=== PATIENT | female | born 1965 | race Caucasian/White ===

== ENCOUNTER 2016-04-02 10:16 | Emergency (ER) | payer SELFPAY ==
[~2016-04-02] VITALS: Ht 157.5 cm; Wt 51.5 kg
[~2016-04-02 10:16] MED LIST: ALBU8I INH; AZIT250T74 PO; BENZ100 PO; PRED20 PO
[2016-04-02 10:21] VITALS: BP 83/53; PULSE 70; RESP 16; TEMP 97.7; O2SAT 100
--- NOTE | 2016-04-02 11:52 | RADHPO ---
EXAM DATE/TIME: 04/02/2016 10:39 [facility] COMPARISON: No previous studies available for comparison. INDICATIONS : Lefth hand/5th digit pain after jamming it against a wall & heavy object. MEDICAL HISTORY : Gastroesophageal reflux disease. Pancreatitis. Asthma. CVA. SURGICAL HISTORY : section. ENCOUNTER: Initial ACUITY: 2 days PAIN SCORE: 6/10 LOCATION: Left hand FINDINGS: Three view examination of the left hand demonstrates no soft tissue swelling, dislocation, or fractur e. The carpal bones appear intact. The interphalangeal and metacarpophalangeal joints are intact. Bony mineralization is normal. Incidental note is that of an ulnar minus variant of the wrist CONCLUSION: 1. Ulnar minus variant of the wrist. 2. Otherwise negative with no acute osseous injury. Joce Sandoval MD on April 02, 2016 at 11:49 Board Certified Radiologist. This report was verified electronically.
[2016-04-02] MEDS ORDERED: MOTR200T4 PO (12:23)
--- NOTE | 2016-04-02 12:23 | PD ---
HPI Chief Complaint: Injury Time Seen by Provider: 10:35 Travel History International Travel<30 days: No Contact w/Intl Traveler<30days: No Traveled to known affect area: No History of Present Illness HPI 50-year-old female with previous history of anorexia nervosa, presents to the ER today because she states that she had accidentally hit her left hand while trying to move some trays at work, is having pain in the lateral left hand area. She denies any other issues or injuries. Pain is mostly at the fifth metacarpal area, hurts with touch, and movement, and is currently a 9 out of 10. Modifying Factors: None Associated Signs & Symptoms: Left hand pain, injury Risk Factors: None PFSH Past Medical History Asthma: Yes (EARLY TWENTIES AND A CHILD) Bipolar Disorder: Yes Cerebrovascular Accident: Yes (TIA) Diminished Hearing: No GERD: Yes Hepatitis: Yes (HEP A) Psychiatric: Yes (BIPOLAR & ANOREXIA) Immunizations Current: Yes Pancreatitis: Yes Tetanus Vaccination: Unknown PNEUMOCCOCAL Vaccine (Year): 2 ?: Not Tubal Ligation: Yes Past Surgical History Abdominal Surgery: Yes () Section: Yes Other Surgery: Yes Social History Alcohol Use: Yes (occ.) Tobacco Use: Yes Substance Use: Yes (marijuana) Allergies-Medications (Allergen,Severity, Reaction): Coded Allergies: No Known Allergies (Verified , 04/02/16) Reported Meds & Prescriptions Reported Meds & Active Scripts Active No Active Prescriptions or Reported Medications Review of Systems Except as stated in HPI: all other systems reviewed are Neg Physical Exam Narrative GENERAL: Well-nourished, well-developed middle age female patient in no acute distress. SKIN: Warm and dry. HEAD: Normocephalic. EYES: No scleral icterus. No injection or drainage. NECK: Supple, trachea midline. CARDIOVASCULAR: Regular rate and rhythm without murmurs, gallops, or rubs. RESPIRATORY: Breath sounds equal bilaterally. No accessory muscle use. GASTROINTESTINAL: Abdomen soft, non-tender, nondistended. MUSCULOSKELETAL: No cyanosis, or edema. BACK: Nontender without obvious deformity. No CVA tenderness. Left hand: There is mild tenderness to palpation of the fifth metacarpal area. Neurovascularly intact. No obvious deformities identified. No significant ecchymosis. Data Data Last Documented VS Vital Signs Date Time Temp Pulse Resp B/P Pulse Ox O2 Delivery O2 Flow Rate FiO2 04/02/16 10:21 97.7 70 16 83/53 100 Orders Hand, Complete ([id number]) (04/02/16 10:35) MDM Medical Decision Making Medical Screen Exam Complete: Yes Emergency Medical Condition: Yes Medical Record Reviewed: Yes Interpretation(s) Last 24 hours Impressions Hand X-Ray 04/02/16 1035 Signed Impressions: Service Date/Time: Saturday, April 02, 2016 10:39 - CONCLUSION: 1. Ulnar minus variant of the wrist. 2. Otherwise negative with no acute osseous injury. Joce Sandoval MD Differential Diagnosis Contusion versus fractures versus dislocation Narrative Course X-ray did not reveal any signs of acute bony injuries. At this point, I suspect that this is a contusion. My plan would be to release her with symptomatic relief or pain and follow-up as necessary with primary care doctor. Return for any worsening in symptoms as necessary. The plan has been discussed with the patient and she states understanding. In addition, patient's blood pressure is fairly low ER. However, she is not reporting any dizziness, or other symptoms related to it. Her blood pressure is always low on previous visits as well. I do not suspect acute issues here. Diagnosis Primary Impression: CONTUSION OF LEFT HAND, INITIAL ENCOUNTER Med/Other Pt SpecificInfo: Prescription(s) given Scripts Ibuprofen (Motrin Ib)200 Mg [id number] Mg PO Q6H PRN (PAIN SCALE 1 TO 10) #21 TAB Ref 0 Prov:Destini Mcfarland MD 04/02/16 Disposition: 01 DISCHARGE HOME Condition: Stable Destini Mcfarland MD Apr 02, 2016 12:23
== END 2016-04-02 12:39 | disposition home or self-care (01) ==
LOC: PHED 10:16
DX: S60.222A Contusion of left hand, initial encounter (principal); J45.909 Unspecified asthma, uncomplicated; Z86.73 Personal history of transient ischemic attack (TIA), and cerebral infarction without residual deficits; K21.9 Gastro-esophageal reflux disease without esophagitis; Z72.0 Tobacco use; X58.XXXA Exposure to other specified factors, initial encounter; Y99.0 Civilian activity done for income or pay
CPT/HCPCS: 73130; 99283

== ENCOUNTER 2016-12-17 10:39 | Emergency (ER) | payer SELFPAY ==
[~2016-12-17] VITALS: Ht 157.5 cm; Wt 68.0 kg
[~2016-12-17 10:39] MED LIST changes: -ALBU8I INH; -AZIT250T74 PO; -BENZ100 PO; +MOTR200T4 PO; -PRED20 PO
[2016-12-17 10:41] VITALS: BP 127/73; PULSE 70; RESP 14; TEMP 98.2; O2SAT 100
[2016-12-17 11:00] VITALS: BP 118/66; PULSE 69; RESP 16; O2SAT 100
[2016-12-17] MEDS ORDERED: RESP: ALBUTEROL 2.5 MG/IPRATROPIUM 0.5 MG NEB (SCH) INH ONE ×2 (11:30)
[2016-12-17] MEDS ORDERED: KETOROLAC TROMETHAMINE 60 MG/2 ML (IM) VIAL IM ONE ×2 (11:30)
--- NOTE | 2016-12-17 11:35 | PD ---
HPI Chief Complaint: Musculoskeletal Complaint Time Seen by Provider: 11:17 Travel History International Travel<30 days: No Contact w/Intl Traveler<30days: No Traveled to known affect area: No History of Present Illness HPI Patient complaining of right-sided chest pain ongoing for 2 weeks. Patient is an achy/pressure-like in nature with associated cough is occasionally productive and shortness of breath. Denies any fevers, nausea, vomiting, abdominal pain, back pain, headache, numbness or tingling, loss change in bowel or bladder, or weakness. Pain is worse with deep inspiration and certain movement. Denies anything making it better. Denies doing anything for this prior to coming to the emergency department. PFSH Past Medical History Asthma: Yes Bipolar Disorder: Yes Cerebrovascular Accident: Yes (TIA) Diminished Hearing: No GERD: Yes Hepatitis: Yes (HEP A) Psychiatric: Yes Immunizations Current: Yes Pancreatitis: Yes Tetanus Vaccination: Unknown Influenza Vaccination: No PNEUMOCCOCAL Vaccine (Year): 2 ?: Not Tubal Ligation: Yes Past Surgical History Abdominal Surgery: Yes () Section: Yes Other Surgery: Yes Social History Alcohol Use: Yes (occ.) Tobacco Use: No Substance Use: Yes (marijuana) Allergies-Medications (Allergen,Severity, Reaction): Coded Allergies: No Known Allergies (Verified , 12/17/16) Reported Meds & Prescriptions Reported Meds & Active Scripts Active Zithromax Z-Rosendo (Azithromycin) 250 Mg Dspk 250 Mg PO DIRECTED 500 MG (2 tabs) day 1, then 1 tab days 2-5. Ventolin Hfa 18 GM Inh (Albuterol Sulfate) 90 Mcg/Act Aer 2 Puff INH Q4H PRN Review of Systems Except as stated in HPI: all other systems reviewed are Neg Physical Exam Narrative GENERAL: Well-developed, well nourished, in no acute distress, and non-ill appearing. SKIN: Focused skin assessment warm and dry. HEAD: Atraumatic. Normocephalic. EYES: Pupils equal and round. EOMI. No scleral icterus. No injection or drainage. ENT: No nasal bleeding or discharge. Mucous membranes pink and moist. NECK: Trachea midline. No JVD. Supple. No nuclear rigidity. CARDIOVASCULAR: Regular rate and rhythm. No murmur appreciated. RESPIRATORY: No accessory muscle use. No respiratory distress. Clear to auscultation. Breath sounds equal bilaterally. Patient reports tenderness over the right anterior chest wall states this is the pain she's been feeling. GASTROINTESTINAL: Abdomen soft, non-tender, nondistended, and no guarding. Hepatic and splenic margins not palpable. No pulsatile mass. MUSCULOSKELETAL: No obvious deformities. No clubbing. No cyanosis. No edema. Full range of motion. NEUROLOGICAL: Awake and alert. No obvious cranial nerve deficits. Motor grossly within normal limits. Normal speech. PSYCHIATRIC: Appropriate mood and affect; insight and judgment normal. Data Data Last Documented VS Vital Signs Date Time Temp Pulse Resp B/P (MAP) Pulse Ox O2 Delivery O2 Flow Rate FiO2 12/17/16 13:22 12/17/16 13:14 97 Room Air 12/17/16 11:04 68 16 12/17/16 10:41 98.2 Orders Orders Chest, Single Ap (12/17/16 11:27) Ecg Monitoring (12/17/16 11:27) Oximetry (12/17/16 11:27) Albuterol-Ipratropium Neb (Duoneb Neb) (12/17/16 11:30) Ketorolac Inj (Toradol Inj) (12/17/16 11:30) Electrocardiogram (12/17/16 11:35) Basic Metabolic Panel (Bmp) (12/17/16 11:35) Ckmb (Isoenzyme) Profile (12/17/16 11:35) Complete Blood Count With Diff (12/17/16 11:35) D-Dimer (12/17/16 11:35) Magnesium (Mg) (12/17/16 11:35) Prothrombin Time / Inr (Pt) (12/17/16 11:35) Act Partial Throm Time (Ptt) (12/17/16 11:35) Troponin I (12/17/16 11:35) Bilateral Bp Monitoring (12/17/16 11:35) Iv Access Insert/Monitor (12/17/16 11:35) Sodium Chloride 0.9% Flush (Ns Flush) (12/17/16 11:45) Ketorolac Inj (Toradol Inj) (12/17/16 11:45) CKMB (12/17/16 11:47) CKMB% (12/17/16 11:47) Mandatory Outpatient Referral (12/17/16 12:41) Ed Discharge Order (12/17/16 12:45) Labs Laboratory Tests Test 12/17/16 11:47 White Blood Count 5.9 TH/MM3 Red Blood Count 4.66 MIL/MM3 Hemoglobin 13.3 GM/DL Hematocrit 39.4 % Mean Corpuscular Volume 84.5 FL Mean Corpuscular Hemoglobin 28.5 PG Mean Corpuscular Hemoglobin Concent 33.7 % Red Cell Distribution Width 16.5 % Platelet Count 264 TH/MM3 Mean Platelet Volume 7.8 FL Neutrophils (%) (Auto) 54.5 % Lymphocytes (%) (Auto) 34.2 % Monocytes (%) (Auto) 8.9 % Eosinophils (%) (Auto) 1.0 % Basophils (%) (Auto) 1.4 % Neutrophils # (Auto) 3.2 TH/MM3 Lymphocytes # (Auto) 2.0 TH/MM3 Monocytes # (Auto) 0.5 TH/MM3 Eosinophils # (Auto) 0.1 TH/MM3 Basophils # (Auto) 0.1 TH/MM3 CBC Comment DIFF FINAL Differential Comment Prothrombin Time 11.2 SEC Prothromb Time International Ratio 1.0 RATIO Activated Partial Thromboplast Time 25.5 SEC D-Dimer Quantitative (PE/DVT) 0.19 MG/L FEU Blood Urea Nitrogen 9 MG/DL Creatinine 0.84 MG/DL Random Glucose 89 MG/DL Calcium Level 9.7 MG/DL Magnesium Level 2.3 MG/DL Sodium Level 138 MEQ/L Potassium Level 4.4 MEQ/L Chloride Level 107 MEQ/L Carbon Dioxide Level 25.3 MEQ/L Anion Gap 6 MEQ/L Estimat Glomerular Filtration Rate 71 ML/MIN Total Creatine Kinase 138 U/L Creatine Kinase MB 1.5 NG/ML Troponin I LESS THAN 0.02 NG/ML MDM Medical Decision Making Medical Screen Exam Complete: Yes Emergency Medical Condition: Yes Interpretation(s) EKG reviewed with Dr. Hilliard shows sinus rhythm with ventricular rate of 64. No STEMI. Last Impressions Chest X-Ray 12/17/16 2759 Signed Impressions: Service Date/Time: Saturday, December 17, 2016 11:44 - CONCLUSION: There is a new 1.3 cm noncalcified nodule in the lateral right lung. Albaro Arango MD Laboratory Tests Test 12/17/16 11:47 White Blood Count 5.9 TH/MM3 (4.0-11.0) Red Blood Count 4.66 MIL/MM3 (4.00-5.30) Hemoglobin 13.3 GM/DL (11.6-15.3) Hematocrit 39.4 % (35.0-46.0) Mean Corpuscular Volume 84.5 FL (80.0-100.0) Mean Corpuscular Hemoglobin 28.5 PG (27.0-34.0) Mean Corpuscular Hemoglobin Concent 33.7 % (32.0-36.0) Red Cell Distribution Width 16.5 % (11.6-17.2) Platelet Count 264 TH/MM3 (150-450) Mean Platelet Volume 7.8 FL (7.0-11.0) Neutrophils (%) (Auto) 54.5 % (16.0-70.0) Lymphocytes (%) (Auto) 34.2 % (9.0-44.0) Monocytes (%) (Auto) 8.9 % (0.0-8.0) Eosinophils (%) (Auto) 1.0 % (0.0-4.0) Basophils (%) (Auto) 1.4 % (0.0-2.0) Neutrophils # (Auto) 3.2 TH/MM3 (1.8-7.7) Lymphocytes # (Auto) 2.0 TH/MM3 (1.0-4.8) Monocytes # (Auto) 0.5 TH/MM3 (0-0.9) Eosinophils # (Auto) 0.1 TH/MM3 (0-0.4) Basophils # (Auto) 0.1 TH/MM3 (0-0.2) CBC Comment DIFF FINAL Differential Comment Prothrombin Time 11.2 SEC (9.8-11.6) Prothromb Time International Ratio 1.0 RATIO Activated Partial Thromboplast Time 25.5 SEC (24.3-30.1) D-Dimer Quantitative (PE/DVT) 0.19 MG/L FEU (0.00-0.50) Blood Urea Nitrogen 9 MG/DL (7-18) Creatinine 0.84 MG/DL (0.50-1.00) Random Glucose 89 MG/DL (74-106) Calcium Level 9.7 MG/DL (8.5-10.1) Magnesium Level 2.3 MG/DL (1.5-2.5) Sodium Level 138 MEQ/L (136-145) Potassium Level 4.4 MEQ/L (3.5-5.1) Chloride Level 107 MEQ/L (98-107) Carbon Dioxide Level 25.3 MEQ/L (21.0-32.0) Anion Gap 6 MEQ/L (5-15) Estimat Glomerular Filtration Rate 71 ML/MIN (>89) Total Creatine Kinase 138 U/L (26-192) Creatine Kinase MB 1.5 NG/ML (0.5-3.6) Troponin I LESS THAN 0.02 NG/ML Differential Diagnosis Bronchitis, pneumonia, PE, acute coronary syndrome, musculoskeletal pain, other Narrative Course Patients symptom complex is consistent with bronchitis. The patient is non-ill appearing and is in no respiratory distress and comfortable. The patient moves air well and oxygen saturations are normal. Chest x-ray revealed no evidence of obvious consolidation of infiltrate. There is no clinical evidence to suggest pneumonia at this time. Plan of care and management were discussed with the patient who agreed with plan. The patient was instructed to follow up with their physician and instructed to return if worsens, progressively worsening shortness of breath or difficulty breathing, persistent fever, chest pains or discomfort, inability to keep medication or fluids down with or without vomiting , or as needed. Patient in no obvious distress upon re-evaluation. Reports improvement in symptoms after breathing treatment. All pertinent laboratory/Radiology result(s ) discussed with patient including incidental lung nodule noted on chest x-ray. Discussed patient with Dr. Hilliard prior to discharge, who is in agreement with plan of care and disposition. Patient was asked if they wanted to speak to my attending, which the patient did not wish to do at this time. Any questions/concerns in reference to patient diagnosis/condition discussed and clarified prior to patient's discharge. Reinforced sheer importance of close follow up with patient's primary physician or primary care clinic and land leasing examiner. Mandatory referral was placed for the land leasing examiner. Instructed patient to return to ED immediately, if symptoms return/worsen. Patient showed understanding of above instructions. Further instructions and recommendations were detailed in discharge paperwork. Patient ambulated without difficulty out of ED at discharge. Diagnosis Primary Impression: Bronchitis Additional Impression: Lung nodule seen on imaging study Referrals: [facility] Patient Instructions: Acute Bronchitis (ED), General Instructions, Pulmonary Nodules (ED) Additional Instructions: Follow-up with your primary care physician next week for reevaluation. Mandatory referral was placed for you to follow up with a land leasing examiner regarding incidental lung nodule noted on x-ray today. Take all medication as prescribed. Return to the emergency department if symptoms get worse. Med/Other Pt SpecificInfo: Prescription(s) given Scripts Azithromycin (Zithromax Z-Rosendo) 250 Mg Dspk 250 MG PO DIRECTED for Infection, #1 DSPK 0 Refills 500 MG (2 tabs) day 1, then 1 tab days 2-5. Prov: Don Hilliard MD 12/17/16 Albuterol 18 GM Inh (Ventolin Hfa 18 GM Inh) 90 Mcg/Act Aer 2 PUFF INH Q4H Y for SHORTNESS OF BREATH, #1 INHALER 0 Refills Prov: Don Hilliard MD 12/17/16 Disposition: 01 DISCHARGE HOME Condition: Stable Parvez Turcios Dec 17, 2016 11:35
[2016-12-17] MEDS ORDERED: SODIUM CHLORIDE 0.9% FLUSH 10 ML FLUSH IVF PRN ×2 (11:45)
[2016-12-17] MEDS ORDERED: KETOROLAC TROMETHAMINE 30 MG/ML (IVP) VIAL IV PUSH ONE ×2 (11:45)
[2016-12-17 12:05] LABS: AUTOMATED NEUTROPHIL # 3.2 TH/MM3 (1.8-7.7); BASOPHIL # 0.1 TH/MM3 (0-0.2); BASOPHIL % 1.4 % (0.0-2.0); EOSINOPHIL # 0.1 TH/MM3 (0-0.4); HEMATOCRIT 39.4 % (35.0-46.0); HEMOGLOBIN 13.3 GM/DL (11.6-15.3); LYMPH % 34.2 % (9.0-44.0); MEAN CELL VOLUME 84.5 FL (80.0-100.0); MEAN CORPUSCULAR HEMOGLOBIN 28.5 PG (27.0-34.0); MEAN CORPUSCULAR HGB CONC 33.7 % (32.0-36.0); MEAN PLATELET VOLUME 7.8 FL (7.0-11.0); MONO % 8.9 % (0.0-8.0); MONOCYTE # 0.5 TH/MM3 (0-0.9); NEUT % 54.5 % (16.0-70.0); PLATELET COUNT 264 TH/MM3 (150-450); RED BLOOD COUNT 4.66 MIL/MM3 (4.00-5.30); RED CELL DISTRIBUTION WIDTH 16.5 % (11.6-17.2); WHITE BLOOD COUNT 5.9 TH/MM3 (4.0-11.0)
--- NOTE | 2016-12-17 12:10 | RADRPT ---
EXAM DATE/TIME: 12/17/2016 11:44 [facility] COMPARISON: CHEST SINGLE AP, January 28, 2015, 9:17. INDICATIONS : Chest pain, right side MEDICAL HISTORY : asthma, mini strokes, seizures, anorexia, bipolar SURGICAL HISTORY : None. ENCOUNTER: Initial ACUITY: 2 weeks PAIN SCORE: 8/10 LOCATION: Bilateral chest FINDINGS: There is a 1.3 cm faint smooth margined opacity in lower lateral right lung which is a new finding fr om prior examination in 2014. The remainder of the lungs are clear. The heart is normal size. Both hemidiaphragms well delineated. Central bronchopulmonary markings are normal in appearance. CONCLUSION: There is a new 1.3 cm noncalcified nodule in the lateral right lung. Albaro Arango MD on December 17, 2016 at 12:07 Board Certified Radiologist. This report was verified electronically.
[2016-12-17 12:20] LABS: PROTHROMBIN TIME - PATIENT 11.2 SEC (9.8-11.6)
[2016-12-17 12:21] LABS: D-DIMER 0.19 MG/L FEU (0.00-0.50)
[2016-12-17 12:28] LABS: BICARBONATE 25.3 MEQ/L (21.0-32.0); BLOOD UREA NITROGEN 9 MG/DL (7-18); CALCIUM 9.7 MG/DL (8.5-10.1); CHLORIDE 107 MEQ/L (98-107); CREATININE 0.84 MG/DL (0.50-1.00); GLOMERULAR FILTRATION RATE 71 ML/MIN (>89); GLUCOSE,RANDOM 89 MG/DL (74-106); MAGNESIUM 2.3 MG/DL (1.5-2.5); SODIUM (NA) 138 MEQ/L (136-145)
[2016-12-17 12:32] LABS: TROPONIN I LESS THAN 0.02 NG/ML (0.02-0.05)
[2016-12-17] MEDS ORDERED: VENTAER INH ×2 (12:45)
[2016-12-17] MEDS ORDERED: ZITHTAB PO ×2 (12:45)
[2016-12-17 13:14] VITALS: O2SAT 97
--- NOTE | 2016-12-19 21:15 | EKG ---
Date Performed: 12/17/2016 Time Performed: 11:43:23 PTAGE: 51 years EKG: Sinus rhythm WITH SHORT ID INTERVAL BORDERLINE ECG PREVIOUS TRACING : 01/28/2015 08.57 DOCTOR: Ofelia Choi Interpretating Date/Time 12/19/2016 21:04:00
--- NOTE | 2016-12-19 21:15 | EKG ---
Date Performed: 12/17/2016 Time Performed: 11:43:23 PTAGE: 51 years EKG: Sinus rhythm WITH SHORT [place] INTERVAL BORDERLINE ECG PREVIOUS TRACING : 01/28/2015 08.57 DOCTOR: Ofelia Choi Interpretating Date/Time 12/19/2016 21:04:00
--- NOTE | 2016-12-19 21:15 | EKG ---
Date Performed: 12/17/2016 Time Performed: 11:43:23 PTAGE: 51 years EKG: Sinus rhythm WITH SHORT [place] INTERVAL BORDERLINE ECG PREVIOUS TRACING : 01/28/2015 08.57 DOCTOR: Ofelia Choi Interpretating Date/Time 12/19/2016 21:04:00
== END 2016-12-17 13:53 | disposition home or self-care (01) ==
LOC: NEPC 10:39
DX: J40 Bronchitis, not specified as acute or chronic (principal); R91.1 Solitary pulmonary nodule; J45.909 Unspecified asthma, uncomplicated; F31.9 Bipolar disorder, unspecified; K21.9 Gastro-esophageal reflux disease without esophagitis; Z87.19 Personal history of other diseases of the digestive system; Z86.73 Personal history of transient ischemic attack (TIA), and cerebral infarction without residual deficits; Z79.899 Other long term (current) drug therapy
CPT/HCPCS: 71010; 80048; 82550; 82552; 83735; 84484; 85025; 85379; 85610; 85730; 93005; 94664; 96374; 99285; J1885